=== PATIENT | female | born 1955 | race Caucasian/White ===

== ENCOUNTER 2023-09-08 12:43 | Emergency (ER) | payer OTHER, SELFPAY ==
[2023-09-08 12:52] VITALS: BP 118/79
--- NOTE | 2023-09-08 13:17 | ED.GENMED ---
History of Present Illness
General
Chief Complaint: Heart Rate Problem
Source: patient and family (Daughter)
Exam Limitations: none
Time Seen by Provider: 09/08/23 13:04
Nursing documentation reviewed up to this point in time: agreed with
Travel History
Have you had any contact with someone who has COVID-19?: No
Do you have any symptoms of coronavirus? Fever > 100 degrees, chills, cough, shortness of breath, sore throat, loss of taste or smell, muscle aches, or headache?: No
History of Present Illness
History of Present Illness:
68-year-old female with a past medical history of hypertension, hyperlipidemia, smoker who presents to the emergency room with her daughter for evaluation of bruising. Patient reports that over the past few weeks she has noticed scattered bruising
throughout her body that are occurring in the absence of trauma. Today she woke up when she noticed bruising around her eye and she says that she decided she should be checked out. She denies any other bleeding including bleeding in her stools,
nosebleeding, gum bleeding. She did not have any falls or injuries she says. She says she currently lives by herself and feels safe at home. She denies any trauma or abuse. She denies being on any blood thinners. She denies any other
complaints. Family is concerned because there is apparently a family history of leukemia and they have thought that perhaps this could be a cause of her easy bruising. She does note that she has been having chronic issues with palpitations and
shortness of breath.
Past History
Past History
ED Past Medical History: HTN
ED Past Surgical History: Appendectomy, Cholecystectomy, Gynecological (Hysterectomy) and Tonsilectomy
Social History
Tobacco: Vaping
Alcohol: Occasional
Drug: Marijuana (occasional vape)
Personal: Single
Living: alone
Family History
Family History: Other (Noncontributory)
Review of Systems
Review of Systems
All Other Systems: ROS reviewed and negative except as documented in HPI and ROS
Constitutional: Denies fever or chills
EENT: Denies sore throat or runny nose
Respiratory: Reports cough (Chronic) and trouble breathing (Chronic)
Cardiac: Reports palpitations (Chronic); Denies chest pain
ABD/GI: Denies abdominal pain, nausea, vomiting, diarrhea or bloody stools
: Denies flank pain
Musculoskeletal: Reports back pain (Chronic); Denies neck pain
Neurological: Denies dizzy, headache, weakness or numbness
Phy Exam
Physical Exam
Physical Exam:
General: Awake, alert, oriented x3; no acute distress
Head: Normocephalic, atraumatic
Eyes: Conjunctiva normal, EOMI, pupils equal round and reactive to light bilaterally
Throat: Airway intact, handling secretions, no oral lesions
Neck: Trachea midline, supple without meningismus
Lungs: Faint scattered wheezing; normal pulse ox, normal respiratory rate on room air
Heart: Regular rate and rhythm, systolic murmur
Abd: Soft, non distended, nontender
Neuro: Cranial nerves grossly intact, speech fluid, ambulatory
Skin: Patient has ecchymosis scattered across extremities, back of varying ages�most notably on both elbows, both knees, posterior left shoulder and the dorsum of both hands; she has some very slight left periorbital ecchymosis as well
Extremities: Scattered ecchymosis of varying ages as above; she has no reproducible tenderness, able to move all extremities through full active range of motion without discomfort and is weightbearing in the ER
Scores
Heart Failure Risk
Heart Failure Risk Score: Not Applicable
Heart Score for Chest Pain Patients
STEMI patient?: Not applicable
Withdrawal Assessment of Alcohol
Withdrawal Assessment Completed?: Not applicable
Course
Orders/Labs/Results
Orders:
Orders
09/08/23 12:45
ECG [Electrocardiogram (*1)] Urgent
Reason for Study: Chest Pain
EKG- Treatment ONCE
09/08/23 13:05
CR Chest - 2 Views Urgent
Comment:
Reason For Exam: sob
09/08/23 13:32
Complete Blood Count/With Diff Urgent
Comprehensive Metabolic Panel Urgent
PTT Urgent
Prothrombin Time Urgent
Abnormal Lab Results
09/08/23
13:32
WBC 16.1 H 10^3/uL
(4.8-10.8)
Abs Immat Gran (auto) 0.1 H 10^3/uL
(0-0.05)
Absolute Neuts (auto) 10.6 H 10^3/uL
(1.4-6.5)
Absolute Lymphs (auto) 3.8 H 10^3/uL
(1.2-3.4)
Absolute Monos (auto) 1.4 H 10^3/uL
(0.1-0.6)
BUN 28 H mg/dl
(7-17)
Glucose 127 H mg/dl
(70-99)
Calcium 10.4 H mg/dl
(8.4-10.2)
AST 120 H U/L
(14-36)
ALT 73 H U/L
(0-35)
09/08/23 13:32
09/08/23 13:32
Vital Signs
Initial and Last Documented VS:
Initial Vital Signs
Temp Pulse Resp BP Pulse Ox
37.2 C 78 18 118/79 96
09/08/23 12:52 09/08/23 12:52 09/08/23 12:52 09/08/23 12:52 09/08/23 12:52
Last Documented Vital Signs
Temp Pulse Resp BP Pulse Ox
37.2 C 78 18 118/79 96
09/08/23 12:52 09/08/23 12:52 09/08/23 12:52 09/08/23 12:52 09/08/23 12:52
MDM/Problems Addressed
Differential Diagnosis Includes:
Occult trauma, abuse, thrombocytopenia, bleeding disorder, bruising of senility
MDM/Problems Addressed:
68-year-old female presents with her daughter with concern for easy bruising as described above. She also has chronic dyspnea and palpitations that she notes. She is not on blood thinners. She denies any trauma and vehemently denies any abuse
that she feels safe at home. Her vital signs are normal. Plan to check labs including a CBC and a CMP, coags. Will check an EKG and chest x-ray given her report of palpitations and dyspnea on other suspect that this is likely related to her
continued heavy smoking. Will monitor on telemetry reassess after the above.
Labs reviewed: CBC shows leukocytosis to 16 (similar to prior values) but otherwise unremarkable�no goiter. Notably her platelet count is normal at 280. Her coags are normal. Her CMP shows no clinically significant abnormalities, only marginally
abnormal LFTs. Her chest x-ray shows signs consistent with COPD but no other acute pathology and I think this accounts for her chronic dyspnea. She has a normal pulse ox and a normal respiratory rate. She has been stable throughout her ED visit
here. No clear negation for hospital admission at this point but I think she should see hematology to follow-up closely as an outpatient. I did reach out to our director federal and spoke with patient at length about scheduling close follow-up.
Patient and daughter are comfortable with this plan. Spoke about return precautions all questions answered.
Chronic conditions affecting care:
Smoking
*Radiology
Radiology exam reviewed: radiology read reviewed
*Pulse Oximetry
Patient hypoxic: no
*EKG
Interpreted by ED Provider?: Yes
Heart Rate: 69
Rate: normal
Rhythm: sinus and PAC's
[place]: normal axis
Interval: normal interval
QRS Pattern: normal QRS
Ischemia: no ischemia
*Critical Care Note
Total Time (30-74mins, 75-104mins- exclusive of procedures): Not Applicable
Data Reviewed
Review of Other/Old Records Reveals: Labs and Records
Source: patient and family (Daughter)
Patient Management
Social determinants of health affecting care: Strong social support
Discussion with other providers: [employer] (Discussed with hematology)
ED Attending Note
-
Portions of this chart may have been created with voice recognition software.� Occasional wrong word or��sound alike� substitutions may have occurred due to the inherent limitations of voice recognition software.
Discharge Plan
Departure
Patient Disposition: Home (Routine Discharge)
Date of Disposition: 09/08/23
Time of Disposition: 17:01
Patient with high blood pressure during this ER visit?: No
Discharge Problem:
Abnormal bruising
Instructions: Taking care of bruises
Prescriptions:
No Action
multivitamin Tablet
1 tab PO DAILY
atorvastatin 40 mg tablet
40 mg PO DAILY
ibuprofen 200 mg Capsule
400 mg PO Q6H PRN (Reason: mild pain/fever)
lisinopril 20 mg tablet
20 mg PO DAILY
ascorbic acid (vitamin C) [Vitamin C] 500 mg Tablet
500 mg PO DAILY
albuterol sulfate 90 mcg/actuation HFA aerosol inhaler
1 puff INHALATION R Q4 PRN (Reason: sob/wheezing)
Referrals:
Keri Guzman DO [Active] - Call in 1-3 days for appt (Forensic Science Examiner)
Caity Roy DO [Family Provider] -
Activity Restrictions/Additional Instructions:
Thank you for visiting the Emergency Department at [facility].
1. Please schedule a follow up appointment as directed. Call first thing tomorrow morning to make an appointment.
2. If indicated, please take your medications as instructed and indicated on discharge paperwork.
3. If any of your symptoms do not improve, or persist, or become more severe within 6-12 hours, please return to the emergency department for further care.
4. Please return to the emergency department if you develop a headache, neck pain/stiffness, fever greater than 100.4F, chest pain, shortness of breath, persistent nausea, vomiting, slurred speech, difficulty walking, numbness/tingling, weakness,
signs of infection or any other symptoms that are worrisome to you.
Please call [phone] if you have any questions.
Interventions
Interventions:
*Risk Screen - Suicide Last Done: 09/08/23 12:52
*General Assessment Last Done: 09/08/23 12:52
*Neglect/Abuse Screening Last Done: 09/08/23 12:52
*ED COVID-19 Vaccine History Last Done: 09/08/23 12:52
Discharge Date and Time
Print Language: MACANESE
[2023-09-08 13:46] LABS: % Basophils 0.3 % (0-2); % Immature Granulocytes 0.4 % (0-0.5); % Lymphocytes 23.8 % (20.5-51.1); % Monocytes 8.7 % (1.7-9.3); % Neutrophils 65.8 % (42.2-75.2); Absolute Basophils 0.1 10^3/uL (0-0.2); Absolute Eosinophils 0.2 10^3/uL (0-0.7); Absolute Immature Granulocytes 0.1 10^3/uL (0-0.05); Absolute Lymphocytes 3.8 10^3/uL (1.2-3.4); Absolute Monocytes 1.4 10^3/uL (0.1-0.6); Absolute Neutrophils 10.6 10^3/uL (1.4-6.5); Hematocrit 39.1 % (37.0-47.0); Mean Corp Hgb Conc. 33.2 g/dL (33.0-37.0); Mean Corpuscular Hgb 30.5 pg (27.0-31.0); Mean Corpuscular Volume 91.8 fL (81.0-99.0); Nucleated Red Blood Cells % 0 %; Platelet Count 280 10^3/uL (130-400); Red Blood Cell Count 4.26 10^6/uL (4.20-5.40); Red Cell Dist. Width 13.9 % (11.5-14.5); White Blood Cell Count 16.1 10^3/uL (4.8-10.8)
[2023-09-08 13:57] LABS: ALT (SGPT) 73 U/L (0-35); AST (SGOT) 120 U/L (14-36); Albumin 4.5 g/dl (3.5-5.0); Alkaline Phosphatase 58 U/L (38-126); Blood Urea Nitrogen 28 mg/dl (7-17); Calcium 10.4 mg/dl (8.4-10.2); Carbon Dioxide 27 mmol/L (22-30); Chloride 102 mmol/L (98-107); Glucose 127 mg/dl (70-99); Potassium 3.8 mmol/L (3.5-5.1); Sodium 135 mmol/L (135-145); Total Protein 7.1 g/dl (6.3-8.2); eGFR > 60.00
[2023-09-08 17:00] VITALS: BP 152/91
== END 2023-09-08 17:00 | disposition home or self-care (01) ==
LOC: EMR 12:43
PROVIDERS: EMERGENCY PHYSICIAN Emergency Medicine; FAMILY PHYSICIAN Internal Medicine
DX: R23.3 Spontaneous ecchymoses (principal); I10 Essential (primary) hypertension; E78.00 Pure hypercholesterolemia, unspecified; D72.829 Elevated white blood cell count, unspecified; F17.290 Nicotine dependence, other tobacco product, uncomplicated; Z90.49 Acquired absence of other specified parts of digestive tract; Z90.710 Acquired absence of both cervix and uterus
CPT/HCPCS: 99283; 71046; 80053; 85025; 85610; 85730; 93005

== ENCOUNTER → 2024-02-15 10:05 | Outpatient (REF) | payer OTHER, SELFPAY | LOC: HWRAD 10:05 | PROVIDERS: ATTENDING PHYSICIAN Internal Medicine | DX: M25.531 Pain in right wrist (principal) | CPT/HCPCS: 73110 ==

== ENCOUNTER → 2024-02-29 07:29 | Outpatient (REF) | payer OTHER, SELFPAY ==
[2024-02-29 09:21] LABS: % Basophils 0.8 % (0-2); % Eosinophils 2.4 % (0-6); % Immature Granulocytes 0.2 % (0-0.5); % Lymphocytes 25.5 % (20.5-51.1); % Monocytes 7.6 % (1.7-9.3); % Neutrophils 63.5 % (42.2-75.2); Absolute Basophils 0.1 10^3/uL (0-0.2); Absolute Eosinophils 0.3 10^3/uL (0-0.7); Absolute Lymphocytes 2.9 10^3/uL (1.2-3.4); Absolute Monocytes 0.9 10^3/uL (0.1-0.6); Absolute Neutrophils 7.1 10^3/uL (1.4-6.5); Hematocrit 41.3 % (37.0-47.0); Hemoglobin 13.5 g/dL (12.0-16.0); Mean Corp Hgb Conc. 32.7 g/dL (33.0-37.0); Mean Corpuscular Hgb 30.5 pg (27.0-31.0); Mean Corpuscular Volume 93.4 fL (81.0-99.0); Mean Platelet Volume 10.1 fL (7.4-10.4); Nucleated Red Blood Cells % 0 %; Platelet Count 311 10^3/uL (130-400); Red Blood Cell Count 4.42 10^6/uL (4.20-5.40); White Blood Cell Count 11.2 10^3/uL (4.8-10.8)
[2024-02-29 09:22] LABS: Urine Albumin Negative (Neg - Trace); Urine Bilirubin Negative (Negative); Urine Character Clear (Clear); Urine Color Yellow; Urine Glucose Negative (Negative); Urine Ketone Negative (Negative); Urine Leukocyte 1+ (Negative); Urine Nitrite Negative (Negative); Urine Occult Blood Negative (Negative); Urine Urobilinogen Negative (Neg - 1+)
[2024-02-29 09:26] LABS: ALT (SGPT) 15 U/L (0-35); AST (SGOT) 20 U/L (14-36); Albumin 4.3 g/dl (3.5-5.0); Alkaline Phosphatase 58 U/L (38-126); Blood Urea Nitrogen 11 mg/dl (7-17); Calcium 9.7 mg/dl (8.4-10.2); Carbon Dioxide 28 mmol/L (22-30); Chloride 101 mmol/L (98-107); Glucose 95 mg/dl (70-99); HDL Cholesterol 67 mg/dl; LDL Cholesterol, Calculated 75 mg/dl; Potassium 4.5 mmol/L (3.5-5.1); Sodium 142 mmol/L (135-145); Total Bilirubin 0.5 mg/dl (0.2-1.3); Total Cholesterol 157 mg/dl (50-199); Total Protein 6.9 g/dl (6.3-8.2); Triglyceride 79 mg/dl (10-149); Very Low Density Lipoprotein 15 mg/dl (0-30); eGFR > 60.00
[2024-02-29 09:37] LABS: Urine Red Blood Cell 0-2 /HPF (0-2)
[2024-02-29 09:53] LABS: TSH Reflex To Free T4 2.32 uIU/ml (0.47-4.68)
[2024-03-01 16:02] LABS: Thyroglobulin Antibodies <0.9 IU/mL (0.0-4.0); Thyroid Peroxidase Ab (TPO) 0.5 IU/mL (0.0-9.0)
== END ==
LOC: HWWDC 07:29
PROVIDERS: ATTENDING PHYSICIAN Internal Medicine
DX: Z87.891 Personal history of nicotine dependence (principal); D72.829 Elevated white blood cell count, unspecified; Z72.0 Tobacco use; I10 Essential (primary) hypertension; E78.2 Mixed hyperlipidemia; J44.9 Chronic obstructive pulmonary disease, unspecified; R73.01 Impaired fasting glucose; Z12.31 Encounter for screening mammogram for malignant neoplasm of breast; Z12.11 Encounter for screening for malignant neoplasm of colon; E66.3 Overweight; Z59.9 Problem related to housing and economic circumstances, unspecified; M54.2 Cervicalgia; Z83.49 Family history of other endocrine, nutritional and metabolic diseases; Z23 Encounter for immunization; M25.531 Pain in right wrist
CPT/HCPCS: 36415; 71271; 76536; 80053; 80061; 81003; 81015; 84443; 85025; 86376; 86800

== ENCOUNTER 2024-06-11 17:21 | Outpatient (RCR) | payer OTHER, SELFPAY | END 2024-06-11 23:59 | disposition home or self-care (01) | LOC: RPT 17:21 | PROVIDERS: ATTENDING PHYSICIAN Internal Medicine | DX: R42 Dizziness and giddiness (principal); Z73.6 Limitation of activities due to disability | CPT/HCPCS: 97162 ==

== ENCOUNTER → 2024-07-14 15:58 | Outpatient (REF) | payer OTHER, SELFPAY | LOC: HWRCS 15:58 | PROVIDERS: ATTENDING PHYSICIAN Internal Medicine Cardiovascular Disease; FAMILY PHYSICIAN Internal Medicine | DX: I51.81 Takotsubo syndrome (principal) | CPT/HCPCS: 93306 ==

== ENCOUNTER → 2024-07-29 11:27 | Outpatient (REF) | payer OTHER, SELFPAY | LOC: HWRAD 11:27 | PROVIDERS: ATTENDING PHYSICIAN Internal Medicine | DX: S99.922D Unspecified injury of left foot, subsequent encounter (principal) | CPT/HCPCS: 73630 ==